=== PATIENT | male | born 1935 | race Caucasian/White ===

== ENCOUNTER 2016-12-14 06:30 | Day surgery (SDC) | payer MEDICARE, BC ==
[2016-12-14] MEDS ORDERED: Dexamethasone 4 MG/ML 5 ML MDV ONE (06:47)
[2016-12-14] MEDS ORDERED: Povidone-Iodine 10% Soln 118.25 ML Bottle ONE (06:47)
[2016-12-14] MEDS ORDERED: Bupivacaine 0.5% 50 ML MDV ONE (06:47)
[2016-12-14] MEDS ORDERED: Propofol 200 MG/20 ML SDV ONE (06:58)
[2016-12-14] MEDS ORDERED: fentaNYL 100 MCG/2 ML SDV ONE (06:59)
[2016-12-14] MEDS ORDERED: Lidocaine 0.5% 50 ML SDV ONE (07:03)
[2016-12-14] MEDS ORDERED: Lactated Ringers 1,000 ML IV SCH (07:15)
[2016-12-14] MEDS ORDERED: ceFAZolin 1 GM in Premix Bag 1 BAG IV ONE (07:30)
[2016-12-14] MEDS ORDERED: ceFAZolin 1 GM in Sodium Chloride 0.9% 100 ML IV ONE (07:30)
[2016-12-14] MEDS ORDERED: Acetaminophen/HYDROcodone 325-5 MG Tab PO PRN (08:48)
[2016-12-14 09:08] VITALS: BP 153/74
[2016-12-14] MEDS ORDERED: Ketorolac 60 MG/2 ML SDV IM ONE (09:15)
--- NOTE | 2016-12-14 09:31 | OR ---
DATE OF PROCEDURE: 12/14/2016 PREOPERATIVE DIAGNOSIS: Left carpal tunnel syndrome. POSTOPERATIVE DIAGNOSIS: Left carpal tunnel syndrome. PROCEDURE: Left carpal tunnel release. ANESTHESIA: Conscious sedation plus [place] block. FLUIDS: Lactated Ringer solution. ESTIMATED BLOOD LOSS: Zero. COMPLICATIONS: None. SPECIMEN: None. TOURNIQUET TIME: 21 minutes. DISCHARGE DISPOSITION: Stable to PACU. INDICATION: The patient was seen preoperatively in clinic. Many years ago, he had a previous right carpal tunnel release. He stated that his symptoms were exactly the same. Risks and benefits of the procedure were explained to the patient and informed consent was obtained. DETAILS OF PROCEDURE: The patient was seen preoperatively by myself and the Anesthesia staff in the preop holding area, where the operative site was marked. He was brought to the operative suite by Anesthesia, where a [place] block was administered as well as some conscious sedation. The patient's left upper extremity was then prepped and draped in a sterile manner. Time-out was called identifying the correct patient, the correct procedure, the correct site, and the antibiotics had begun within appropriate period of time. An incision was made in line just proximal to the Márquez's cardinal line and in line with the radial border of the fourth metacarpal for approximately 1.5 cm and carried down to the deep fascia. A self-retaining retractor was used. Bipolar electrocautery was used for hemostasis. The transverse carpal ligament was identified and incised through using a #15 blade, approximately 2 mm radial to the hook of the hamate. The median nerve was identified. Iris scissors were used to go slightly proximal and distally through the transverse carpal ligament. Long Metzenbaum scissors were then used to go underneath the deep palmar fascia proximally and distally from the transverse carpal ligament below it and above it, and then under direct visualization, using a Ragnell, deep fascia was incised proximally and distally. This was confirmed to be free with the Metzenbaums. We then copiously irrigated with saline, placed some dexamethasone in the wound, and then closed the incision with 3-0 nylon mattress sutures followed by sterile dressing. The patient had the Ben block let down and was taken to the PACU in a stable condition. Kalyan Felipe DO /[id number]
== END 2016-12-14 09:32 | disposition home or self-care (01) ==
LOC: JP.SDS 06:30
PROVIDERS: ATTEND Orthopaedic Surgery
DX: G56.02 Carpal tunnel syndrome, left upper limb (principal); I25.10 Atherosclerotic heart disease of native coronary artery without angina pectoris; G47.30 Sleep apnea, unspecified; F41.9 Anxiety disorder, unspecified; Z88.8 Allergy status to other drugs, medicaments and biological substances; Z95.5 Presence of coronary angioplasty implant and graft; Z98.890 Other specified postprocedural states
CPT/HCPCS: 64721; A9270; J0690; J1100; J1885; J2704; J3010; J7120